=== PATIENT | female | born 1945 | race Two or more races ===

== ENCOUNTER 2018-05-14 16:45 | Observation (INO) | payer OTHER ==
[~2018-05-14] VITALS: Ht 154.9 cm; Wt 91.6 kg
[2018-05-14] MEDS ORDERED: SODIUM CHLORIDE 0.9% 500 ML IVB ONE (17:29)
[2018-05-14] MEDS ORDERED: SODIUM CHLORIDE 0.9% 1,000 ML IVB ONE (17:29)
[2018-05-14 17:58] LABS: Basophils # (auto) 0 uL; Basophils % (auto) 0.4 % (0.0-2.0); Eosinophils # (auto) 0.1 uL; Eosinophils % (auto) 1.5 % (0.0-7.0); Hematocrit 39.8 % (36.0-46.0); Hemoglobin 13.6 g/dL (12.2-16.2); Lymphocytes # (auto) 1.6 uL; Lymphocytes % (auto) 16.8 % (10.0-50.0); Mean Corpuscular Hemoglobin 30.5 pg (28.0-32.0); Mean Corpuscular Hgb Conc. 34.2 g/dL (32.0-36.0); Mean Corpuscular Volume 89.4 fL (80.0-100.0); Monocytes # (auto) 0.5 uL; Monocytes % (auto) 5.4 % (0.0-12.0); Neutrophils # (auto) 7.4 uL; Neutrophils % (auto) 75.9 % (37.0-80.0); Platelet Count (auto) 227 10^3/uL (140-450); Red Blood Cells 4.46 10^6/uL (4.0-5.20); Red Cell Distribution Width 13.9 % (11.8-14.3); White Blood Cell 9.8 10^3/uL (4.4-10.8)
[2018-05-14] MEDS ORDERED: ONDANSETRON HCL 4 MG/2 ML VIAL IV ONE (18:00)
[2018-05-14] MEDS ORDERED: MEPERIDINE HCL (25 MG/ML) 1ML VIAL IV ONE (18:00)
[2018-05-14 18:01] LABS: Urine Bacteria NONE SEEN /hpf (None Seen); Urine Blood Negative /uL (Negative); Urine Mucus FEW (None Seen); Urine Specific Gravity 1.022 (1.001-1.035); Urine WBC <1 /hpf (0 - 5)
[2018-05-14 18:13] LABS: INR 0.96 (0.9-1.15); Partial Thromboplastin Time 25.7 sec (23.78-33.04); Prothrombin Time 10.3 sec (9.27-12.13)
[2018-05-14 18:16] LABS: Alanine Aminotransferase 25 U/L (13-56); Albumin 3.7 g/dL (3.4-5.0); Anion Gap 13 (5-15); Aspartate Aminotransferase 19 U/L (15-37); BUN/Creatinine Ratio 27.5; Blood Urea Nitrogen 28 mg/dL (7-18); Calcium 8.3 mg/dL (8.5-10.1); Carbon Dioxide 16 mmol/L (21-32); Chloride 112 mmol/L (98-107); GFR African American 69 mL/min; GFR Non-African American 57 mL/min; Glucose 149 mg/dL (74-106); Potassium 3.6 mmol/L (3.5-5.1); Sodium 141 mmol/L (136-145)
[2018-05-14 18:21] LABS: Alkaline Phosphatase 73 U/L (45-117); Bilirubin, Total 0.4 mg/dL (0.2-1.0); Total Protein 7.7 g/dL (6.4-8.2)
[2018-05-14] MEDS ORDERED: PROMETHAZINE HCL 25 MG/ML 1ML IV ONE (20:15)
[2018-05-14] MEDS ORDERED: HYDROmorphone HCL 2 MG/ML VL IV ONE (20:15)
[2018-05-14 21:19] VITALS: BP 188/91
== END 2018-05-14 22:08 | disposition short-term general hospital (02) | DRG 537 ==
LOC: ER 16:45 → OVERFLOW 16:46 → ER 22:08
PROVIDERS: ADMIT Family Medicine; ATTEND Family Medicine
DX: S76.112A Strain of left quadriceps muscle, fascia and tendon, initial encounter (principal); M97.02XA Periprosthetic fracture around internal prosthetic left hip joint, initial encounter; I10 Essential (primary) hypertension; W19.XXXA Unspecified fall, initial encounter; Y92.89 Other specified places as the place of occurrence of the external cause; Y93.89 Activity, other specified; Y99.8 Other external cause status; Z86.73 Personal history of transient ischemic attack (TIA), and cerebral infarction without residual deficits
CPT/HCPCS: 36415; 70450; 71045; 72192; 80053; 81001; 83735; 84484; 85025; 85610; 85730; 93005; 96361; 96374; 96375; 99291; G0378; J1170; J2175; J2405; J2550

== ENCOUNTER 2024-10-15 13:01 | Emergency (ER) | payer OTHER ==
[~2024-10-15] VITALS: Ht 157.5 cm; Wt 73.0 kg
--- NOTE | 2024-10-15 16:13 | DVH ---
CHEST RADIOGRAPH Indication: lower ext weakness Technique: Single frontal view of the chest was obtained COMPARISON: None FINDINGS: Lines and Tubes: None Lungs: Clear Pleura: No effusion. No pneumothorax. Cardiomediastinal contours: Unremarkable Bones: Unremarkable IMPRESSION: No acute disease.
--- NOTE | 2024-10-15 16:14 | DVH ---
CT HEAD WITHOUT CONTRAST INDICATION: lower ext weakness EXAM DATE: 10/15/2024 03:49 PM COMPARISON: None RADIATION DOSE: CTDIvol: 52.61 mGy, DLP: 826.54 mGy*cm PROCEDURE: CT scans of the head were obtained from the vertex to the skull base. Sagittal and coronal reconstructions were provided. All CT scans at this medical facility are performed using dose modulation techniques as appropriate t o a performed exam including the following: Automated exposure control was utilized; adjustment of th e MA and/or KV according to patient size; and use of iterative reconstruction technique. 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 There is sulcal and ventricu lar prominence. The brain otherwise shows normal morphology and moore-white matter differentiation, wi thout intracranial hemorrhage, extra-axial fluid collection, mass effect or acute large vessel infarc t.The basal cisterns are patent. The skull and visible facial bones are intact. The paranasal sinuses , mastoid air cells and middle ear cavities are well-aerated. The soft tissues of the scalp are unrem arkable. 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 No acute intracranial abnormality.
[2024-10-15 17:03] LABS: Basophils # (auto) 0.1 10 ^3/uL (0-0.2); Basophils % (auto) 0.6 % (0.0-2.0); Eosinophils # (auto) 0.1 10 ^3/uL (0-0.8); Hemoglobin 14.3 g/dL (12.2-16.2); Lymphocytes # (auto) 2.1 10 ^3/uL (0.4-5.4); Lymphocytes % (auto) 18.9 % (10.0-50.0); Mean Corpuscular Hemoglobin 27.8 pg (28.0-32.0); Mean Corpuscular Hgb Conc. 33.3 g/dL (32.0-36.0); Mean Corpuscular Volume 83.6 fL (80.0-100.0); Monocytes # (auto) 0.8 10 ^3/uL (0-1.3); Monocytes % (auto) 7.3 % (0.0-12.0); Neutrophils # (auto) 8.1 10 ^3/uL (1.6-8.6); Neutrophils % (auto) 72.2 % (37.0-80.0); Platelet Count (auto) 433 10^3/uL (140-450); Red Blood Cells 5.15 10^6/uL (4.0-5.20); Red Cell Distribution Width 15.6 % (11.8-14.3); White Blood Cell 11.2 10^3/uL (4.4-10.8)
--- NOTE | 2024-10-15 17:13 | ED.PDOC ---
HPI (NEURO) HPI Comments HPI: Poor Historian. 79-year-old female presents to the emergency department for evaluation to rule out TIA. Patient is not on any blood thinners. Patient states that on day she had a slip and fall from her transport chair and then later she woke up and found herself wedged between the chair and the wall. She does not remember how she got there. She suspects that she passed out. Patient lives with the . Patient called 911 who came gave her a lift assist but she did not seek any medical attention at that time. She stayed at home for few days afterwards and sensory was advised by family to go rule out possible TIA. She went to [facility] this past Friday and eloped because they were very busy. She has been staying at home since then. She feels weaker and weaker unable to ambulate at all. Denies any focal neurological deficits. Patient states compliance with her medications. Patient follows with wound care 3 times a week. Past Medcial History: Hypertension, peripheral vascular disease, chronic right leg wound Past Surgical History: REVIEW OF SYSTEMS: CONSTITUTIONAL: Denies acute: fever, diaphoresis, chills, HEAD: Denies acute: headache, photophobia Eyes: Denies acute: Double vision, vision loss, eye pain, eye discharge. EARS: Denies acute: tinnitus, hearing loss, ear discharge, ear pain, THROAT: Denies acute: sore throat, swelling, difficulty swallowing , pain with swallowing, change in voice. NECK: Denies acute: neck pain, neck swelling, stiff neck. HEART: Denies acute : chest pain, palpitations, LUNGS: Denies acute: SOB, wheezing, cough, hemoptysis ABDOMEN: Denies acute: abdominal pain, Nausea, Vomiting, diarrhea, melena , hematemesis, hematochezia SKIN: Denies acute: rash, redness, lesions, itchiness. EXTREMITIES: Denies acute: calf pain, numbness, tingling, weakness, denies pain in extremity. Denies acute: Low back pain. Neuro: Denies acute: focal neurological deficit, motor or sensory focal neurological deficit, tremors, seizure like activity, dizziness, change in mental status, loss of bowel or bladder function, cauda equina like symptoms. : Denies acute: dysuria, hematuria, flank pain, increase in urinary frequency. PSYCH: Denies acute: hallucination, suicidal ideation, homicidal ideation. FEMALE: Denies acute: abnormal vaginal bleeding, foul odor, unusual discharge. PHYSICAL EXAM: General: no acute distress, awake and alert. Head: normocephalic, atraumatic. Neck: supple, trachea is midline, no swelling. Throat: Normal phonation. Eyes:, no erythema, no purulent discharge, no proptosis, no icterus. Heart: regular rate, regular rhythm, no significant murmur appreciated. Lungs: no apparent respiratory distress, Able to speak in full sentences. No wheezing, no rhonchi, no crackles. No stridors Clear to auscultation bilaterally. Abdomen: non tender to palpation, non distended, soft, no guarding, no rebound, + bowel sounds. Neuro: Awake, Alert, oriented to name, self, situation, follows commands GCS=15. Speech is normal. Skin: no petechia, no purpura, no cyanosis, non-pale, not jaundice. Lower extremities: --chronic right lower extremity wound with dressing in place. - pitting edema right greater than left. no deformity, no focal swelling, no calf TTP. Makes eye contact. moves all four extremities. Able to raise bilateral lower extremity against gravity and hold it. Face: no apparent facial droop. Stroke: finger to nose cerebellar testing is intact. No pronator drift. Symmetrical configuration management advisor muscle strength b/l PERRLA, EOM-I CN 2-12 are grossly intact, Chief Complaint: Lower Extremity Time Seen by MD: 17:00 Primary Care Provider: AUBREE Reviewed Notes: Nurses Notes, Medications, Allergies Information Source: Patient Mode of Arrival: EMS Severity: Mild Timing: Days Was a procedure done? Was a procedure done?: No X-Ray, Labs, Meds, VS Vital Signs Date Time Temp Pulse Resp B/P (MAP) Pulse Ox O2 Delivery O2 Flow Rate FiO2 10/15/24 21:39 98.1 92 16 95/79 (84) 95 98.1 10/15/24 20:16 90 18 144/79 (100) 95 10/15/24 18:43 85 10/15/24 13:14 98.9 79 16 115/71 (86) 94 Lab Test 10/15/24 17:34 10/15/24 16:41 Range/Units Troponin I High Sensitivity 11 12 </=34 ng/L White Blood Count 11.2 H 4.4-10.8 10^3/uL Red Blood Count 5.15 4.0-5.20 10^6/uL Hemoglobin 14.3 12.2-16.2 g/dL Hematocrit 43.0 36.0-46.0 % Mean Corpuscular Volume 83.6 80.0-100.0 fL Mean Corpuscular Hemoglobin 27.8 L 28.0-32.0 pg Mean Corpuscular Hemoglobin Concent 33.3 32.0-36.0 g/dL Red Cell Distribution Width 15.6 H 11.8-14.3 % Platelet Count 433 140-450 10^3/uL Mean Platelet Volume 8.2 6.9-10.8 fL Neutrophils (%) (Auto) 72.2 37.0-80.0 % Lymphocytes (%) (Auto) 18.9 10.0-50.0 % Monocytes (%) (Auto) 7.3 0.0-12.0 % Eosinophils (%) (Auto) 1.0 0.0-7.0 % Basophils (%) (Auto) 0.6 0.0-2.0 % Neutrophils # (Auto) 8.1 1.6-8.6 10 ^3/uL Lymphocytes # (Auto) 2.1 0.4-5.4 10 ^3/uL Monocytes # (Auto) 0.8 0-1.3 10 ^3/uL Eosinophils # (Auto) 0.1 0-0.8 10 ^3/uL Basophils # (Auto) 0.1 0-0.2 10 ^3/uL Nucleated Red Blood Cells 0.0 % Sodium Level 136 136-145 mmol/L Potassium Level 4.0 3.5-5.1 mmol/L Chloride Level 102 98-107 mmol/L Carbon Dioxide Level 25 20-31 mmol/L Anion Gap 9 5-15 Blood Urea Nitrogen 12 9-23 mg/dL Creatinine 1.06 H 0.550-1.02 mg/dL Glomerular Filtration Rate Calc 53 >90 mL/min BUN/Creatinine Ratio 11.3 10.0-20.0 Serum Glucose 100 74-106 mg/dL Lactic Acid Level 1.6 0.4-2.0 mmol/L Calcium Level 9.3 8.7-10.4 mg/dL Magnesium Level 1.3 L 1.6-2.6 mg/dL Total Bilirubin 0.5 0.2-1.0 mg/dL Aspartate Amino Transferase (AST) 25 13-40 U/L Alanine Aminotransferase (ALT) 11 7-40 U/L Alkaline Phosphatase 107 46-116 U/L Total Protein 8.2 5.7-8.2 g/dL Albumin 3.6 3.2-4.8 g/dL [place] [address] Ph: [phone] DIAGNOSTIC IMAGING Diagnostic Imaging Report : [id number] Signed PATIENT: ANDI PERDOMO ACCT: [id number] UNIT: [id number] : 1945 LOC: ER ROOM / BED: / AGE / SEX: 79 / F ADM STATUS: REG ER SERVICE 31 ORDERING PHYSICIAN: LOREE VILLARREAL DO PROCEDURE(s): CXRP - CHEST PORTABLE REASON: lower ext weakness ORDER NUMBER(s): [id number], ACCESSION NUMBER(s): [id number] CHEST RADIOGRAPH Indication: lower ext weakness Technique: Single frontal view of the chest was obtained COMPARISON: None FINDINGS: Lines and Tubes: None Lungs: Clear Pleura: No effusion. No pneumothorax. Cardiomediastinal contours: Unremarkable Bones: Unremarkable IMPRESSION: No acute disease. ATED BY: ARLEY HALL MD DICTATED DATE/TIME: 10/15/24 160 SIGNED BY: ARLEY HALL MD SIGNED DATE/TIME: 10/15/24 160 CC: [place] [address] Ph: [phone] DIAGNOSTIC IMAGING Diagnostic Imaging Report : [id number] Signed PATIENT: ANDI PERDOMO ACCT: [id number] UNIT: [id number] : 1945 LOC: ER ROOM / BED: / AGE / SEX: 79 / F ADM STATUS: REG ER SERVICE ORDERING PHYSICIAN: LOREE VILLARREAL DO PROCEDURE(s): HWOCT - HEAD WITHOUT CONTRAST REASON: lower ext weakness ORDER NUMBER(s): [id number], ACCESSION NUMBER(s): [id number] CT HEAD WITHOUT CONTRAST INDICATION: lower ext weakness EXAM DATE: 10/15/2024 03:49 PM COMPARISON: None RADIATION DOSE: CTDIvol: 52.61 mGy, DLP: 826.54 mGy*cm PROCEDURE: CT scans of the head were obtained from the vertex to the skull base. Sagittal and coronal reconstructions were provided. All CT scans at this medical facility are performed using dose modulation techniques as appropriate to a performed exam including the following: Automated exposure control was utilized; adjustment of the MA and/or KV according to patient size; and use of iterative reconstruction technique. 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 There is sulcal and ventricular prominence. The brain otherwise shows normal morphology and moore-white matter differentiation, without intracranial hemorrhage, extra-axial fluid collection, mass effect or acute large vessel infarct.The basal cisterns are patent. The skull and visible facial bones are intact. The paranasal sinuses, mastoid air cells and middle ear cavities are well-aerated. The soft tissues of the scalp are unremarkable. 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 No acute intracranial abnormality. ATED BY: JAYLAN RAMIREZ MD DICTATED DATE/TIME: 10/15/241617 SIGNED BY: JAYLAN RAMIREZ MD SIGNED DATE/TIME: 10/15/241617 CC: Time of 1ST Reevaluation: 17:30 Reevaluation 1ST: Unchanged Time of 2ND Reevaluation: 18:42 (The case was discussed with the [facility] admitting team (HPI, physical exam, labs and diagnostic tests that were available at the time of disposition, ED course, treatment plan) on the phone. They agreed to transfer the patient to their facility for further evaluation and treatment. Dr. Jeffrey authorization [id number]) Patient Education/Counseling: Diagnosis, Treatment Family Education/Counseling: No Family Present Additional Information Patient presented with the above 79-year-old female presents to the emergency department for evaluation to rule out TIA. workup was initiated. patient was found with the above mentioned diagnosis. the following medications were ordered: magnesium sulfate 1g the following tests were ordered: CT, EKG, CXR Patient ED course and VS have been stabilized. Patient has been reassessed in the ED and remained in a stable condition. Pertinent incidental findings were discussed with the patient and/or family. Patient/family voices understanding and is agreeable with plan. Patient has been observed in the ED adequate length of time to insure improvement/stability. Escalation of care considered: Consideration of escalation to observation or admission Patient was TRANSFERRED TO [facility] PER INSURANCE REQUIREMENT to the medicine team for further evaluation and treatment of their presentation. All the reports of any imaging studies that were ordered by myself were reviewed by myself. Departure 1 Departure Time of Disposition: 17:14 Impression: Primary Impression: Syncope and collapse Additional Impressions: TIA (transient ischemic attack) Hypomagnesemia Disposition: 02 SHORT TERM HOSPITAL Condition: Guarded Additional Instructions: [place] [address] Ph: [phone] DIAGNOSTIC IMAGING Diagnostic Imaging Report : [id number] Signed PATIENT: ANDI PERDOMO ACCT: [id number] UNIT: [id number] : 1945 LOC: ER ROOM / BED: / AGE / SEX: 79 / F ADM STATUS: [facility] ER SERVICE 1532 ORDERING PHYSICIAN: LOREE VILLARREAL DO PROCEDURE(s): CXRP - CHEST PORTABLE REASON: lower ext weakness ORDER NUMBER(s): [id number], ACCESSION NUMBER(s): [id number] CHEST RADIOGRAPH Indication: lower ext weakness Technique: Single frontal view of the chest was obtained COMPARISON: None FINDINGS: Lines and Tubes: None Lungs: Clear Pleura: No effusion. No pneumothorax. Cardiomediastinal contours: Unremarkable Bones: Unremarkable IMPRESSION: No acute disease. ATED BY: ARLEY HALL MD DICTATED DATE/TIME: 10/15/24 160 SIGNED BY: ARLEY HALL MD SIGNED DATE/TIME: 10/15/24 160 CC: [address] [address] Ph: [phone] DIAGNOSTIC IMAGING Diagnostic Imaging Report : [id number] Signed PATIENT: ANDI PERDOMO ACCT: [id number] UNIT: [id number] : 1945 LOC: ER ROOM / BED: / AGE / SEX: 79 / F ADM STATUS: REG ER SERVICE 1532 ORDERING PHYSICIAN: LOREE VILLARREAL DO PROCEDURE(s): HWOCT - HEAD WITHOUT CONTRAST REASON: lower ext weakness ORDER NUMBER(s): [id number], ACCESSION NUMBER(s): [id number] CT HEAD WITHOUT CONTRAST INDICATION: lower ext weakness EXAM DATE: 10/15/2024 03:49 PM COMPARISON: None RADIATION DOSE: CTDIvol: 52.61 mGy, DLP: 826.54 mGy*cm PROCEDURE: CT scans of the head were obtained from the vertex to the skull base. Sagittal and coronal reconstructions were provided. All CT scans at this medical facility are performed using dose modulation techniques as appropriate to a performed exam including the following: Automated exposure control was utilized; adjustment of the MA and/or KV according to patient size; and use of iterative reconstruction technique. 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 There is sulcal and ventricular prominence. The brain otherwise shows normal morphology and moore-white matter differentiation, without intracranial hemorrhage, extra-axial fluid collection, mass effect or acute large vessel infarct.The basal cisterns are patent. The skull and visible facial bones are intact. The paranasal sinuses, mastoid air cells and middle ear cavities are well-aerated. The soft tissues of the scalp are unremarkable. 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 No acute intracranial abnormality. ATED BY: JAYLAN RAMIREZ MD DICTATED DATE/TIME: 10/15/241617 SIGNED BY: JAYLAN RAMIREZ MD SIGNED DATE/TIME: 10/15/24 161 CC: Discharged With: Self Critical Care Note Critical Care Time?: No Stability Stability form required: No I personally scribed for LOREE VILLARREAL DO ([email or web address]) on 10/15/24 at 17:13. Electronically submitted by Kimberly Jimenez ([email or web address]). I personally scribed for LOREE VILLARREAL DO ([email or web address]) on 10/15/24 at 20:07. Electronically submitted by Kimberly Jimenez ([email or web address]). I personally scribed for LOREE VILLARREAL DO ([email or web address]) on 10/15/24 at 20:09. Electronically submitted by Kimberly Jimenez ([email or web address]). I personally scribed for LOREE VILLARREAL DO ([email or web address]) on 10/15/24 at 21:47. Electronically submitted by Kimberly Jimenez ([email or web address]). LOREE VILLARREAL DO Oct 15, 2024 17:13
[2024-10-15 17:18] LABS: Alanine Aminotransferase 11 U/L (7-40); Albumin 3.6 g/dL (3.2-4.8); Alkaline Phosphatase 107 U/L (46-116); Anion Gap 9 (5-15); Aspartate Aminotransferase 25 U/L (13-40); BUN/Creatinine Ratio 11.3 (10.0-20.0); Bilirubin, Total 0.5 mg/dL (0.2-1.0); Blood Urea Nitrogen 12 mg/dL (9-23); Calcium 9.3 mg/dL (8.7-10.4); Carbon Dioxide 25 mmol/L (20-31); Chloride 102 mmol/L (98-107); Glucose 100 mg/dL (74-106)
[2024-10-15 17:48] LABS: Magnesium 1.3 mg/dL (1.6-2.6); Sodium 136 mmol/L (136-145); Total Protein 8.2 g/dL (5.7-8.2)
[2024-10-15] MEDS ORDERED: MAGNESIUM SULFATE 1GM/100ML 100 ML IV ONE (18:30)
[2024-10-15 21:39] VITALS: BP 95/79; PULSE 92; RESP 16; TEMP 98.1; O2SAT 95
--- NOTE | 2024-10-17 07:13 | ECG ---
[facility] Test Date: 2024-10-15 Test Time: 18:43:39 Pat Name: ANDI PERDOMO Department: er Room: Gender: F Certified Surgical First Assistant: [place] : 1945 Requested By: LOREE VILLARREAL Order Number: [id number] Reading MD: Measurements Intervals [place] Rate: 85 P: 62 TN: 150 QRS: 31 QRSD: 93 T: 52 QT: 383 QTc: 456 Interpretive Statements Sinus rhythm Atrial premature complex Low voltage, precordial leads Please click the below link to view image of tracing.
== END 2024-10-15 17:11 | disposition short-term general hospital (02) ==
LOC: EDBD 13:01 → ER 13:01
DX: R55 Syncope and collapse (principal); G45.9 Transient cerebral ischemic attack, unspecified; E83.42 Hypomagnesemia; G93.89 Other specified disorders of brain; I10 Essential (primary) hypertension; W07.XXXA Fall from chair, initial encounter
CPT/HCPCS: 36415; 70450; 71045; 80053; 83605; 83735; 84484; 85025; 93005